=== PATIENT | female | born 1955 | race Caucasian/White ===

== ENCOUNTER → 2017-03-04 | Outpatient (CLI) | payer OTHER | LOC: MAMO 02-18 10:20 | DX: Z12.31 Encounter for screening mammogram for malignant neoplasm of breast (principal) | CPT/HCPCS: G0202 ==

== ENCOUNTER → 2017-03-04 | Outpatient (CLI) | payer OTHER | LOC: KOH-I 15:31 | DX: Z13.820 Encounter for screening for osteoporosis (principal); Z78.0 Asymptomatic menopausal state | CPT/HCPCS: 77080 ==